=== PATIENT | female | born 1945 | race Two or more races ===

== ENCOUNTER → 2020-03-07 | Outpatient (CLI) | payer OTHER | END | disposition home or self-care (01) | LOC: OFIC 805 13:15 | PROVIDERS: ATTEND Otolaryngology | DX: S02.2XXA Fracture of nasal bones, initial encounter for closed fracture (principal); R09.81 Nasal congestion; J34.89 Other specified disorders of nose and nasal sinuses ==

== ENCOUNTER 2020-04-05 09:13 | Outpatient (CLI) | payer OTHER | END 2020-04-05 09:19 | disposition home or self-care (01) | LOC: TOM 09:13 | PROVIDERS: ATTEND Otolaryngology | DX: S02.2XXA Fracture of nasal bones, initial encounter for closed fracture (principal); J34.2 Deviated nasal septum ==

== ENCOUNTER → 2020-04-10 | Outpatient (CLI) | payer OTHER | END | disposition home or self-care (01) | LOC: OFIC 805 10:09 | PROVIDERS: ATTEND Otolaryngology | DX: R09.81 Nasal congestion (principal); J34.89 Other specified disorders of nose and nasal sinuses; S02.2XXA Fracture of nasal bones, initial encounter for closed fracture ==

== ENCOUNTER 2020-05-09 08:57 | Outpatient (CLI) | payer OTHER | END 2020-05-09 15:00 | disposition home or self-care (01) | LOC: RAD 08:57 | PROVIDERS: ATTEND Physical Medicine & Rehabilitation Hospice and Palliative Medicine | DX: M25.512 Pain in left shoulder (principal); M54.6 Pain in thoracic spine; M54.5 Low back pain; M79.642 Pain in left hand ==

== ENCOUNTER 2020-12-04 08:00 | Outpatient (CLI) | payer OTHER | END 2020-12-04 08:30 | disposition home or self-care (01) | LOC: PPH VACUNA 08:00 | DX: Z23 Encounter for immunization (principal) ==

== ENCOUNTER 2021-09-05 08:52 | Outpatient (CLI) | payer OTHER | END 2021-09-05 08:54 | disposition home or self-care (01) | LOC: RAD 08:52 | PROVIDERS: ATTEND Physical Medicine & Rehabilitation Hospice and Palliative Medicine | DX: M79.641 Pain in right hand (principal); M65.849 Other synovitis and tenosynovitis, unspecified hand; M65.30 Trigger finger, unspecified finger ==

== ENCOUNTER 2021-10-19 09:52 | Outpatient (CLI) | payer OTHER | END 2021-10-19 09:59 | disposition home or self-care (01) | LOC: MRI 09:52 | PROVIDERS: ATTEND Psychiatry & Neurology Clinical Neurophysiology | DX: G50.0 Trigeminal neuralgia (principal) | CPT/HCPCS: 70551 ==

== ENCOUNTER 2021-11-07 11:59 | Outpatient (CLI) | payer OTHER | END 2021-11-07 12:00 | disposition home or self-care (01) | LOC: RAD 11:59 | DX: M99.01 Segmental and somatic dysfunction of cervical region (principal); M99.02 Segmental and somatic dysfunction of thoracic region; M99.03 Segmental and somatic dysfunction of lumbar region; M99.04 Segmental and somatic dysfunction of sacral region ==